=== PATIENT | female | born 1990 | race Caucasian/White ===

== ENCOUNTER → 2019-01-17 | Outpatient (REF) | payer OTHER ==
[~2019-01-17] MED LIST: ALBUTEROL INHL INH; BIRTH CONTROL PILL PO; CETI10TA OR; CIPR500T4 OR; FLAG500T OR; VICO5TAB OR
== END ==
LOC: M LAB LCGH 13:59
PROVIDERS: ATTEND Nurse Practitioner Adult Health
DX: Z12.4 Encounter for screening for malignant neoplasm of cervix (principal)

== ENCOUNTER → 2019-01-17 | Outpatient (REF) | payer OTHER | LOC: M LAB LCGH 13:35 | PROVIDERS: ATTEND Nurse Practitioner Adult Health | DX: Z30.432 Encounter for removal of intrauterine contraceptive device (principal) ==

== ENCOUNTER → 2022-04-03 | Outpatient (REF) | payer OTHER ==
[2022-04-03 17:17] LABS: HEMATOCRIT 37.2 % (36.0-47.0); HEMOGLOBIN 12.3 g/dl (12.0-15.5); MEAN CORPUSCULAR HEMOGLOBIN 29.5 pg (27.0-33.0); MEAN CORPUSCULAR HGB CONC 33.1 g/dl (32.0-36.5); MEAN CORPUSCULAR VOLUME 89.2 fl (80.0-96.0); PLATELET COUNT, AUTOMATED 229 10^3/uL (150-450); RED BLOOD COUNT 4.17 10^6/uL (4.00-5.40); WHITE BLOOD COUNT 7.7 10^3/uL (4.0-10.0)
[2022-04-04 12:43] LABS: HEPATITIS C VIRUS ABY INDEX 0.1 INDEX (<0.8); HIV 1&2 SCREEN CENTAUR NEGATIVE (NEGATIVE)
== END ==
LOC: M LAB REF 16:16
PROVIDERS: ATTEND Obstetrics & Gynecology
DX: Z34.81 Encounter for supervision of other normal pregnancy, first trimester (principal)

== ENCOUNTER → 2022-05-06 | Outpatient (CLI) | payer BC, OTHER ==
[2022-05-06 17:20] LABS: GC DNA AMPLIFICATION NEGATIVE (NEGATIVE)
== END ==
LOC: M PLALAB 13:51
PROVIDERS: ATTEND Advanced Practice Midwife
DX: Z34.92 Encounter for supervision of normal pregnancy, unspecified, second trimester (principal)

== ENCOUNTER → 2022-05-28 | Outpatient (CLI) | payer BC, OTHER | LOC: M WHC 10:06 | PROVIDERS: ATTEND Advanced Practice Midwife | DX: Z34.92 Encounter for supervision of normal pregnancy, unspecified, second trimester (principal); Z3A.20 20 weeks gestation of pregnancy ==

== ENCOUNTER → 2022-07-14 | Outpatient (REF) | payer BC, OTHER ==
[2022-07-14 14:00] LABS: HEMATOCRIT 34.9 % (36.0-47.0); HEMOGLOBIN 11.4 g/dl (12.0-15.5); MEAN CORPUSCULAR HEMOGLOBIN 30.6 pg (27.0-33.0); MEAN CORPUSCULAR HGB CONC 32.7 g/dl (32.0-36.5); MEAN CORPUSCULAR VOLUME 93.8 fl (80.0-96.0); PLATELET COUNT, AUTOMATED 185 10^3/uL (150-450); RED BLOOD COUNT 3.72 10^6/uL (4.00-5.40); WHITE BLOOD COUNT 12.8 10^3/uL (4.0-10.0)
[2022-07-14 15:38] LABS: GC DNA AMPLIFICATION NEGATIVE (NEGATIVE)
== END ==
LOC: M PLALAB 13:14
PROVIDERS: ATTEND Advanced Practice Midwife
DX: Z34.92 Encounter for supervision of normal pregnancy, unspecified, second trimester (principal)

== ENCOUNTER → 2022-09-05 | Outpatient (REF) | payer BC, OTHER | LOC: M PLALAB 16:27 | PROVIDERS: ATTEND Advanced Practice Midwife | DX: O09.893 Supervision of other high risk pregnancies, third trimester (principal); Z3A.00 Weeks of gestation of pregnancy not specified ==

== ENCOUNTER 2022-09-30 12:12 | Inpatient (IN) | payer BC, OTHER ==
[2022-09-30] VITALS (25 sets, daily range): BP systolic 99–164; BP diastolic 52–103
[~2022-09-30] VITALS: Ht 167.6 cm; Wt 92.6 kg
[2022-09-30] MEDS ORDERED: LACTATED RINGER'S 1000 ML IV STA (16:07)
[2022-09-30] MEDS ORDERED: OXYTOCIN DRIP 30 UNITS in IV 1 EA IV PRN (16:10)
[2022-09-30] MEDS ORDERED: TRANEXAMIC ACID INJection 1,000 MG in NS 100 ML IV PRN (16:10)
[2022-09-30] MEDS ORDERED: OXYTOCIN INJ 10UNITS/ML 1ML VIAL IM PRN (16:10)
[2022-09-30] MEDS ORDERED: LIDOCAINE 1% MDV 20ML VIAL INFIL PRN (16:10)
[2022-09-30] MEDS ORDERED: METHYLERGONOVINE MALEATE 0.2 MG/ML VIAL (J2210) IM PRN (16:10)
[2022-09-30] MEDS ORDERED: CARBOPROST TROMETHAMINE 250 MCG/ML AMP IM PRN (16:10)
[2022-09-30 16:47] LABS: HEMATOCRIT 38.3 % (36.0-47.0); HEMOGLOBIN 12.8 g/dl (12.0-15.5); MEAN CORPUSCULAR HEMOGLOBIN 29.8 pg (27.0-33.0); MEAN CORPUSCULAR HGB CONC 33.4 g/dl (32.0-36.5); MEAN CORPUSCULAR VOLUME 89.1 fl (80.0-96.0); PLATELET COUNT, AUTOMATED 212 10^3/uL (150-450); WHITE BLOOD COUNT 11.5 10^3/uL (4.0-10.0)
[2022-09-30] MEDS ORDERED: SING10TA32 PO (17:23)
[2022-09-30] MEDS ORDERED: PRENTAB9 PO (17:23)
[2022-09-30] MEDS ORDERED: HOME MED LIST COMPLETE! XX SCH (17:25)
[2022-09-30] MEDS ORDERED: ZYRTTAB8 PO (18:19)
[2022-09-30] MEDS ORDERED: ALBU2.5V10 INH (18:21)
[2022-09-30] MEDS ORDERED: FENTANYL/ROPIVACAINE/NACL BAG 100 ML EPIDURAL SCH (21:25)
[2022-09-30] MEDS ORDERED: EPIDURAL/PCA KEYS XX PRN (21:25)
[2022-09-30] MEDS ORDERED: LR 500 ML IV PRN (21:25)
[2022-09-30] MEDS ORDERED: NALOXONE INJ 0.4MG/1ML VIAL IV PRN (21:25)
[2022-09-30] MEDS ORDERED: ONDANSETRON 4MG 2ML VIAL IV PRN (21:25)
[2022-09-30] MEDS ORDERED: diphenhydrAMINE 50MG/ML VIAL IV PRN (21:25)
[2022-09-30] MEDS ORDERED: ePHEDrine SULFATE 25 MG/5 ML(5MG/ML) SYRINGE IVP PRN (21:25)
[2022-09-30] MEDS ORDERED: OXYTOCIN DRIP 30 UNITS in IV 1 EA IV SCH (22:10)
[2022-09-30] MEDS ORDERED: LR 1,000 ML IV SCH (22:10)
[2022-09-30 22:33] LABS: URIC ACID 4.5 MG/DL (3.1-7.8)
[2022-09-30 22:35] LABS: LDH LACTATE DEHYDROGENASE 169 U/L (120-246)
[2022-09-30 22:36] LABS: ALT/SGPT 23 U/L (7.0-40); AST/SGOT 21 U/L (<34); BILIRUBIN,TOTAL 0.4 MG/DL (0.3-1.2); CREATININE FOR GFR 0.57 MG/DL (0.55-1.30); GLOMERULAR FILTRATION RATE > 60.0 (>60)
[2022-09-30 22:49] LABS: TOTAL PROTEIN,RANDOM URINE 26.5 MG/DL (0.0-14.0)
[2022-10-01] VITALS (14 sets, daily range): BP systolic 108–140; BP diastolic 58–90
[2022-10-01] MEDS ORDERED: IBUPROFEN 600MG TAB PO PRN (01:45)
[2022-10-01] MEDS ORDERED: ANUSOL HC CREAM 30GM TOP PRN (01:45)
[2022-10-01] MEDS ORDERED: ACETAMINOPHEN TAB 650MG DOSE (2X325MG) PO PRN (01:45)
[2022-10-01] MEDS ORDERED: RHOGAM 300MCG (1500IU) INJ IM SCH (01:45)
[2022-10-01] MEDS ORDERED: DOCUSATE SODIUM 100MG CAPSULE PO PRN (01:45)
[2022-10-01] MEDS ORDERED: MOM 30ML SUSPENSION UDC PO PRN (01:45)
[2022-10-01] MEDS ORDERED: DIBUCAINE 1% OINTMENT 30GM TOP PRN (01:45)
[2022-10-01] MEDS ORDERED: AMPICILLIN SOD/SULBACTAM SOD 3 GM in D5W MINI-BAG PLUS 100 ML IV ONE (02:00)
[2022-10-01] MEDS: IBUPROFEN 800 MG TAB PO PRN ×3 (05:18→19:59)
[2022-10-01] MEDS: ACETAMINOPHEN 500 MG TAB PO PRN ×2 (06:50→17:21)
[2022-10-01] MEDS: PRENATAL VITAMINS CHEWABLE TABLET PO SCH (09:20)
[2022-10-01] MEDS ORDERED: zyrtec PO (10:41)
[2022-10-01] MEDS: CETIRIZINE (ZyrTEC) 10 MG TAB PO SCH (13:13)
[2022-10-01] MEDS: MONTELUKAST 10 MG TAB PO SCH (13:13)
[2022-10-02] MEDS: ACETAMINOPHEN 500 MG TAB PO PRN ×2 (00:36→09:42)
[2022-10-02] MEDS: IBUPROFEN 800 MG TAB PO PRN (05:20)
[2022-10-02 06:05] VITALS: BP 109/61
[2022-10-02] MEDS ORDERED: ZYRT10TA12 PO (08:18)
[2022-10-02] MEDS: PRENATAL VITAMINS CHEWABLE TABLET PO SCH (09:41)
[2022-10-02] MEDS: CETIRIZINE (ZyrTEC) 10 MG TAB PO SCH (09:42)
[2022-10-02] MEDS: MONTELUKAST 10 MG TAB PO SCH (09:42)
[2022-10-02] MEDS ORDERED: IBUP-1022 PO (10:55)
[2022-10-02] MEDS ORDERED: ACET-683 PO (10:55)
[2022-10-03] MEDS ORDERED: MEASLES,MUMPS,RUBELLA VACCINE INJ (MMR-II) SC.IMMUN ONE (09:00)
== END 2022-10-02 13:40 | disposition home or self-care (01) | DRG 541 ==
LOC: M LDO 12:12 → M LDI 16:07 → M OBS 10-01 05:24
PROVIDERS: ADMIT Advanced Practice Midwife; ATTEND Advanced Practice Midwife
PROC: 10E0XZZ Delivery of Products of Conception, External Approach (ICD-10-PCS; principal; 2022-10-01)
PROC: 10D17Z9 Manual Extraction of Products of Conception, Retained, Via Natural or Artificial Opening (ICD-10-PCS; 2022-10-01)
DX: O73.0 Retained placenta without hemorrhage (principal); Z88.8 Allergy status to other drugs, medicaments and biological substances; Z37.0 Single live birth; Z3A.38 38 weeks gestation of pregnancy; Z91.018 Allergy to other foods; Z91.010 Allergy to peanuts; Z79.899 Other long term (current) drug therapy

== ENCOUNTER → 2023-05-27 | Outpatient (REF) | payer OTHER ==
[~2023-05-27] MED LIST changes: +ACET-683 PO; +ALBU2.5V10 INH; +IBUP-1022 PO; +MONT-5 PO; +PRENTAB9 PO; +ZYRT10TA12 PO; +ZYRTTAB8 PO; +zyrtec PO
== END ==
LOC: M PLALAB 13:58
PROVIDERS: ATTEND Advanced Practice Midwife
DX: Z01.419 Encounter for gynecological examination (general) (routine) without abnormal findings (principal); Z12.4 Encounter for screening for malignant neoplasm of cervix